=== PATIENT | male | born 1950 | race American Indian/Alaskan Native ===

== ENCOUNTER → 2017-07-29 | Outpatient (CLI) | payer MEDICARE, OTHER ==
[~2017-07-29] MED LIST: CHOL10002; CYCL10 PO; FISH1000 PO; IBUP800 PO; Norco 5-325 Ta1 EACH PO; UBID10
== END | disposition home or self-care (01) ==
LOC: LAB SHORT 08:25 → PLD 08:25
DX: L30.8 Other specified dermatitis (principal)
CPT/HCPCS: 88305; 88313

== ENCOUNTER 2023-01-13 09:37 | Day surgery (SDC) | payer OTHER ==
[2023-01-13] VITALS (14 sets, daily range): BP systolic 101–159; BP diastolic 53–88
[~2023-01-13] VITALS: Ht 182.9 cm; Wt 81.9 kg
--- NOTE | 2023-01-13 11:43 | NUR ---
01/13/23 1143 Kwame Parry HISTORY, CHART, MEDICATIONS AND ALLERGIES REVIEWED BEFORE START OF PROCEDURE. PATIENT CONFIRMS NPO STATUS AND AGREES WITH SCHEDULED PROCEDURE. 3-LEAD EKG REVIEWED WITH PHYSICIAN PRIOR TO START OF PROCEDURE. MONITOR INTACT WITH CONTINUOUS PULSE OXIMETRY,CAPNOGRAPHY, 3-LEAD EKG, INTERMITTENT BP. SUPPLEMENTAL O2 TO BE TITRATED THROUGHOUT PROCEDURE TO MAINTAIN O2 SATURATION ABOVE 90%. PATIENT DETERMINED TO BE ASA APPROPRIATE FOR PROPOFOL SEDATION PRIOR TO START OF PROCEDURE BY
--- NOTE | 2023-01-13 12:04 | NUR ---
REPORT RECEIVED FROM ROBERT VAUGHN. VSS. PT ABLE TO REPOSITION SELF IN BED. PT REQUESTING PO FOOD AND FLUIDS AND TOLERATING THEM WELL. PT DENIES PAIN, NAUSEA OR OTHER DISCOMFORTS AT THIS TIME. KING VAUGHN TO ASSUME OF CARE OF PT AT THIS TIME.
--- NOTE | 2023-01-13 12:09 | NUR ---
DENIES PAIN OR NAUSEA. TOLERATING PO FLUIDS. Discharge instructions reviewed with patient. Patient verbalizes understanding. Copy given to patient to take home. Patient has ride arranged home with her father.
--- NOTE | 2023-01-13 12:19 | NUR ---
UP TO DRESS. GAIT STEADY. NO C/O VERBALIZED.
== END 2023-01-13 12:21 | disposition home or self-care (01) ==
LOC: ORSCMMR 09:37 → ORD 10:30 → ORSCMMR 12:21
PROVIDERS: Internal Medicine Gastroenterology
PROC: 0DBB8ZX Excision of Ileum, Via Natural or Artificial Opening Endoscopic, Diagnostic (ICD-10-PCS; principal; 2023-01-13 10:30)
DX: Z12.11 Encounter for screening for malignant neoplasm of colon (principal); K52.9 Noninfective gastroenteritis and colitis, unspecified; K64.8 Other hemorrhoids; K57.30 Diverticulosis of large intestine without perforation or abscess without bleeding; Z85.46 Personal history of malignant neoplasm of prostate; E78.00 Pure hypercholesterolemia, unspecified
CPT/HCPCS: 88305; J2704; J7120